=== PATIENT | female | born 1995 | race Two or more races ===

== ENCOUNTER 2018-12-16 20:09 | Inpatient (IN) | payer SELFPAY ==
[~2018-12-16] VITALS: Ht 157.5 cm; Wt 93.4 kg
[2018-12-16] MEDS ORDERED: 0.9 % SODIUM CHLORIDE 10 ML DISP.SYRIN. IV PRN (20:15)
[2018-12-16] MEDS ORDERED: NALBUPHINE 10 MG/ML AMPUL. IV PRN (20:15)
[2018-12-16] MEDS ORDERED: fentaNYL PF VIAL 100 MCG/2 ML VIAL IV PRN (20:15)
[2018-12-16] MEDS ORDERED: IBUPROFEN 400 MG TABLET. PO PRN (20:15)
[2018-12-16] MEDS ORDERED: BUTORPHANOL 2 MG/ML VIAL. IV PRN (20:15)
[2018-12-16] MEDS ORDERED: LIDOCAINE 1% PF 30 ML VIAL. INJ PRN (20:15)
[2018-12-16] MEDS ORDERED: ONDANSETRON PF 4 MG/2 ML VIAL. IV PRN (20:15)
[2018-12-16] MEDS ORDERED: OXYTOCIN 30 UNIT/500 ML PREMIX 500 ML IV PRN ×2 (20:15)
[2018-12-16] MEDS ORDERED: ACETAMINOPHEN 325 MG TABLET. PO PRN (20:15)
[2018-12-16] MEDS ORDERED: TERBUTALINE 1 MG/ML VIAL. SQ PRN (20:15)
[2018-12-16] MEDS ORDERED: DINOPROSTONE 10 MG SUPP.VAG VG ONE (20:30)
[2018-12-16 20:43] VITALS: BP 144/88
[2018-12-16] MEDS: IV RINGERS,LACTATED 1000ML 1,000 ML IV SCH (21:03)
[2018-12-16 21:09] LABS: BILIRUBIN,URINE NEGATIVE (NEG); CLARITY,URINE CLOUDY; COLOR,URINE YELLOW; NITRITE,URINE NEGATIVE (NEG); PROTEIN,URINE 100 mg/dL (NEG-TRACE); UROBILINOGEN,URINE 0.2 mg/dL (0.2 mg/dL)
[2018-12-16 21:16] LABS: BACTERIA,URINE MANY /HPF (0-FEW); RBC,URINE OCC /HPF (0-2); SQUAMOUS EPITHELIAL CELL,UR MANY /LPF; WBC,URINE 20-40 /HPF (0-4)
[2018-12-16 21:18] LABS: BASO % 0 % (0-3); EOS # 0.1 x10^3/uL (0.0-0.7); EOS % 1 % (0-3); HEMATOCRIT 30.6 % (36.0-47.0); LYMPH # 1.9 x10^3/uL (1.0-4.8); LYMPH % 19 % (24-48); MEAN CORPUSCULAR HEMOGLOBIN 24 pg (25-35); MEAN CORPUSCULAR HGB CONC 33 g/dL (31-37); MEAN CORPUSCULAR VOLUME 74 fL (79-100); MONO # 0.8 x10^3/uL (0.0-1.1); MONO % 8 % (0-9); NEUT # 7.2 x10^3/uL (1.8-7.7); NEUT % 72 % (31-73); PLATELET COUNT 253 x10^3/uL (140-400); RED BLOOD COUNT 4.16 x10^6/uL (3.50-5.40); RED CELL DISTRIBUTION WIDTH 16.1 % (11.5-14.5); WHITE BLOOD COUNT 10.1 x10^3/uL (4.0-11.0)
[2018-12-17] MEDS: IV RINGERS,LACTATED 1000ML 1,000 ML IV SCH ×3 (06:06→19:42)
[2018-12-17] MEDS ORDERED: L&D EPIDURAL 50 ML SYRINGE. ONE (10:00)
[2018-12-17] MEDS ORDERED: OXYTOCIN PREMIX 30 UNIT/500 ML NS BAG. IV ONE (10:00)
[2018-12-17] MEDS ORDERED: ROPIVacaine 0.2% PF 10 ML VIAL. ONE ×3 (10:00→18:41)
[2018-12-17] MEDS ORDERED: L&D EPIDURAL SYRINGE 50 ML ONE (12:18)
[2018-12-17] MEDS ORDERED: IV RINGERS,LACTATED 1000ML 1,000 ML IV ONE (12:41)
[2018-12-17] MEDS ORDERED: ePHEDrine PF IN SALINE 50 MG/10 ML SYRINGE. IV PRN (12:45)
[2018-12-17] MEDS ORDERED: NALOXONE 0.4 MG/ML VIAL. IV PRN (12:45)
[2018-12-17] MEDS ORDERED: ONDANSETRON PF 4 MG/2 ML VIAL. IV PRN (12:45)
[2018-12-17] MEDS: L&D EPIDURAL SYRINGE 50 ML EPID PRN ×2 (15:33→18:31)
--- NOTE | 2018-12-17 20:32 | PDOC1 ---
OB - History Hx of Present Care: Good Care Ultrasounds: Normal mid trimester US Obstetrical Complications: None Medical Complications: None Other Concerns: History of PIH Questionable history of cardiomyopathy Substance abuse Smoking Past Family/Social History * Past Medical, Surgical, Family and Obstetric Histories reviewed from chart. Blood Type: A+ Rubella: Immune RPR/VDRL: Negative GBS Status: Negative HBsAG: Negative OB - Chief Complaint & HPI Date of Admission: Date of Admission: Dec 16, 2018 at 20:09 Chief Complaint/History : 1 Para: 0 EDC: Jan 12, 2019 Reason for admission: induction of labor Admission Nurse Assessment Rev: Yes OB - Admission Exam Physical Exam Vitals: VS - Last 72 Hours, by Label Date Time Temp Pulse Resp B/P (MAP) Pulse Ox O2 Delivery O2 Flow Rate FiO2 12/17/18 18:31 20 12/17/18 15:33 20 12/16/18 20:43 98.4 88 20 144/88 (106) Room Air 98.4 HEENT: Normal, Nasal Mucosa Normal, Oropharynx Normal, Moist Membranes, Fontanelles Normal Heart: Regular Rate Lungs: Clear, Equal Abdomen: Gravid Extremities: Normal Pulses, No tenderness or swelling Reflexes: Normal Cervical Dilatation: Fingertip Effacement: 25% Station: Ballotable Membranes: Intact Amniotic Fluid: Clear Heart Rate: Normal Accelerations: Accelerations Present Contractions on Admission: >10 Minutes Apart Intensity: Mild Assessment/Plan Assessment/Plan TIUP induction ACSVD MELO MOLINA MD Dec 17, 2018 20:32
[2018-12-17] MEDS ORDERED: MMR per PROTOCOL. MC PRN (21:27)
[2018-12-17] MEDS ORDERED: 0.9 % SODIUM CHLORIDE 10 ML DISP.SYRIN. IV PRN ×2 (21:30→23:15)
[2018-12-17] MEDS ORDERED: HYDROCORTISONE 1% TOPICAL OINTMENT 30GM TUBE. TP PRN ×2 (21:30→23:15)
[2018-12-17] MEDS ORDERED: PHENYLEPH/MINERAL OIL/PETROLAT RECTAL OINTMENT TUBE. RC PRN ×2 (21:30→23:15)
[2018-12-17] MEDS ORDERED: diphenhydrAMINE HCL 25 MG CAPSULE PO PRN ×2 (21:30→23:15)
[2018-12-17] MEDS ORDERED: BENZOCAINE 20% TOPICAL AEROSOL SPRAY 57GM CAN. TP PRN ×3 (21:30→23:15)
[2018-12-17] MEDS ORDERED: ZOLPIDEM 5 MG TABLET. PO PRN ×2 (21:30→23:15)
[2018-12-17] MEDS ORDERED: MAGNESIUM HYDROXIDE 2,400 MG/30 ML ORAL.SUSP. PO PRN ×2 (21:30→23:15)
[2018-12-17] MEDS ORDERED: MAG HYDROX/ALUMINUM HYD/SIMETH 30 ML ORAL.SUSP PO PRN ×2 (21:30→23:15)
[2018-12-17] MEDS ORDERED: SIMETHICONE 80 MG TAB.CHEW PO PRN ×2 (21:30→23:15)
[2018-12-17] MEDS ORDERED: OXYTOCIN 30 UNIT/500 ML PREMIX 500 ML IV PRN ×2 (21:30→23:15)
[2018-12-17] MEDS ORDERED: IBUPROFEN 400 MG TABLET. PO PRN (23:15)
[2018-12-17] MEDS ORDERED: ACETAMINOPHEN 325 MG TABLET. PO PRN (23:15)
[2018-12-18] MEDS: IBUPROFEN 400 MG TABLET. PO PRN ×2 (00:19→15:05)
[2018-12-18] MEDS: ACETAMINOPHEN 325 MG TABLET. PO PRN ×2 (00:19→20:31)
[2018-12-18 00:53] VITALS: BP 112/66
[2018-12-18 05:25] VITALS: BP 95/53
[2018-12-18] MEDS: FERROUS SULFATE 325 MG TABLET. PO SCH ×2 (08:00→19:37)
[2018-12-18] MEDS ORDERED: FERROUS SULFATE 325 MG TABLET. PO SCH (08:00)
[2018-12-18 08:06] LABS: BASO % 0 % (0-3); EOS % 0 % (0-3); HEMATOCRIT 27.3 % (36.0-47.0); LYMPH # 2.4 x10^3/uL (1.0-4.8); LYMPH % 11 % (24-48); MEAN CORPUSCULAR HEMOGLOBIN 24 pg (25-35); MEAN CORPUSCULAR HGB CONC 33 g/dL (31-37); MEAN CORPUSCULAR VOLUME 73 fL (79-100); MONO % 9 % (0-9); NEUT # 17.6 x10^3/uL (1.8-7.7); NEUT % 80 % (31-73); PLATELET COUNT 212 x10^3/uL (140-400); RED BLOOD COUNT 3.74 x10^6/uL (3.50-5.40); RED CELL DISTRIBUTION WIDTH 16.8 % (11.5-14.5)
[2018-12-18 10:14] LABS: % BANDS 10 % (0-9); % EOS 1 % (0-5); % LYMPHS 6 % (24-48); % MONOS 6 % (0-10); % SEGS 77 % (35-66); PLT ESTIMATE ADEQUATE (ADEQUATE)
[2018-12-18 11:00] VITALS: BP 108/64
[2018-12-18] MEDS ORDERED: OXYTOCIN 10 UNIT/ML VIAL. ONE (15:27)
--- NOTE | 2018-12-18 16:02 | PDOC ---
Provider Note Provider Note doing well VSS uterus NTTP FU in AM MELO MOLINA MD Dec 18, 2018 16:02
--- NOTE | 2018-12-18 16:05 | PDOC ---
VAGINAL DELIVERY DATE DATE: 12/17/18 TIME: 16:03 : 1 EDC: Dec 14, 2018 VAGINAL DELIVERY: VTX VACCUM ASSISTED: No SEX: Male WEIGHT 8#14oz Nuchal Cord: No PAIN: Epidural EXTENSION: No EBL 300cc COMPLICATIONS none CONDITION Stable Signs of Intrauterine Infectio: None Shoulder Dystocia: No DIAGNOSIS MELO Miller MD Dec 18, 2018 16:05
[2018-12-18 18:15] VITALS: BP 110/71
[2018-12-18 20:10] VITALS: BP 121/72
[2018-12-18] MEDS: AMOXICILLIN/K CLAV 875/125MG TABLET. PO SCH (22:19)
[2018-12-19] MEDS: IBUPROFEN 400 MG TABLET. PO PRN ×2 (02:26→17:28)
[2018-12-19 02:30] VITALS: BP 122/78
[2018-12-19 04:32] LABS: BASO % 0 % (0-3); EOS # 0.1 x10^3/uL (0.0-0.7); EOS % 1 % (0-3); HEMATOCRIT 25.7 % (36.0-47.0); HEMOGLOBIN 8.1 g/dL (12.0-15.5); LYMPH # 2.7 x10^3/uL (1.0-4.8); LYMPH % 18 % (24-48); MEAN CORPUSCULAR HEMOGLOBIN 23 pg (25-35); MEAN CORPUSCULAR HGB CONC 32 g/dL (31-37); MEAN CORPUSCULAR VOLUME 74 fL (79-100); MONO % 7 % (0-9); NEUT # 11.7 x10^3/uL (1.8-7.7); NEUT % 75 % (31-73); PLATELET COUNT 220 x10^3/uL (140-400); RED BLOOD COUNT 3.47 x10^6/uL (3.50-5.40); RED CELL DISTRIBUTION WIDTH 16.7 % (11.5-14.5); WHITE BLOOD COUNT 15.6 x10^3/uL (4.0-11.0)
[2018-12-19] MEDS: AMOXICILLIN/K CLAV 875/125MG TABLET. PO SCH (09:29)
[2018-12-19] MEDS: FERROUS SULFATE 325 MG TABLET. PO SCH ×2 (09:29→17:23)
[2018-12-19 10:59] VITALS: BP 117/64
[2018-12-19 15:07] VITALS: BP 120/82
--- NOTE | 2018-12-19 17:20 | PDOC3 ---
OB DISCHARGE SUMMARY DATE OF ADMISSION: 12/17/18 DATE OF DISCHARGE: 12/19/18 REASON FOR ADMISSION: Induction of labor INTRAPARTUM PROCEDURES: Spontanous Vag Deliv DISCHARGE DIAGNOSIS: Term Delivered DISCHARGE INFORMATION: Activity (ad adrian), Diet (regular), Instructions (pelvic rest x 6 wks) HOSPITAL COURSE Term gestation delivered vaginally without complications. Abx for unknown fever. KEMI MARINELLI Jr, MD Dec 19, 2018 17:20
[2018-12-19] MEDS ORDERED: NAPR-514 PO (17:23)
[2018-12-19] MEDS ORDERED: AMOX1TAB11 PO (17:23)
--- NOTE | 2018-12-19 17:23 | DISCH ---
DISCHARGE INSTRUCTIONS Condition on Discharge Condition on Discharge: Stable Activity After Discharge Activity Instructions for Disc: Activity as tolerated Lifting Instructions after Dis: No heavy lifting Driving Instructions after Dis: Do not drive today Diet after Discharge Diet after Discharge: Regular Contacting the DRMarcello after DC Call your doctor for: Concerns you may have Follow-Up Follow up with: Dr. Henderson in 1 week. KEMI MARINELLI Jr, MD Dec 19, 2018 17:23
[2018-12-19 17:45] VITALS: BP 117/73
--- NOTE | 2018-12-19 18:15 | NUR ---
Discharge Note: Pt. denies needs or questions at this time. Pt. ambulatory, NB in car seat, escorted by Librado Anderson RN to vehicle with NB, significant other, and belongings present. Pt. discharged home. Nena Ellington RN
== END 2018-12-19 18:15 | disposition home or self-care (01) | DRG 807 ==
LOC: 3 SO LND 20:09 → 3 NORTH 12-17 23:35
PROVIDERS: ADMIT Specialist; ATTEND Specialist
PROC: 10E0XZZ Delivery of Products of Conception, External Approach (ICD-10-PCS; principal; 2018-12-18)
PROC: 3E0R3BZ Introduction of Anesthetic Agent into Spinal Canal, Percutaneous Approach (ICD-10-PCS; 2018-12-18)
PROC: 00HU33Z Insertion of Infusion Device into Spinal Canal, Percutaneous Approach (ICD-10-PCS; 2018-12-18)
PROC: 3E0P7VZ Introduction of Hormone into Female Reproductive, Via Natural or Artificial Opening (ICD-10-PCS; 2018-12-18)
PROC: 0W8NXZZ Division of Female Perineum, External Approach (ICD-10-PCS; 2018-12-18)
DX: O48.0 Post-term pregnancy (principal); Z37.0 Single live birth; Z3A.40 40 weeks gestation of pregnancy
CPT/HCPCS: 36415; 81001; 85007; 85025; 86592; 86850; 86900; 86901; 87086; J2405; J2590; J2795; J7120; G0378

== ENCOUNTER 2019-01-03 16:03 | Emergency (ER) | payer SELFPAY ==
[~2019-01-03] VITALS: Ht 160 cm; Wt 82.1 kg
[~2019-01-03 16:03] MED LIST: AMOX1TAB11 PO; NAPR-514 PO
[2019-01-03 16:57] VITALS: BP 118/58
--- NOTE | 2019-01-03 18:54 | RAD ---
Indication:Vaginal delivery on 12/17/2018. Passing clots. TECHNIQUE: Grayscale, color Doppler and spectral waveform images of the pelvis obtained. COMPARISON: None FINDINGS: Anteverted uterus measuring 13.0 x 7.5 x 10.5 cm. Small amount of fluid in the endometrial cavity. No endometrial vascularity. Right ovary measures 2.3 x 3.3 x 2.1 cm and shows evidence of blood flow. Left ovary measures 3.1 x 2.4 x 2.6 cm and shows evidence of blood flow. No free pelvic fluid. IMPRESSION: Trace amount of fluid or old blood in the endometrial cavity. No imaging evidence of retained products of conception. Electronically signed by: Jose Antonio Otero DO (01/03/2019 6:51 PM) [facility]
--- NOTE | 2019-01-03 19:18 | PHYS DOC ---
Past Medical History Past Medical History: No Pertinent History (FAUSTINA FIELD APRN) Past Surgical History: No Surgical History (FAUSTINA FIELD APRN) Alcohol Use: None Drug Use: None (FAUSTINA FIELD APRN) Adult General Chief Complaint Chief Complaint: VAGINAL PROBLEM HPI HPI Patient is a 23 year old female with no significant medical history who presents to the ED today complaining of bleeding she states she had a vaginal delivery on December 17 in this hospital. She states she's been bleeding on and off since then. She states last night she passed a clot and was concerned. She states she does not have any abdominal pain. She states her sister was diagnosed with uterine cancer at the age of 17 and she is concerned about it and would like to be checked for it. (FAUSTINA FIELD APRN) Review of Systems Review of Systems Constitutional: Denies fever or chills [] Eyes: Denies change in visual acuity, redness, or eye pain [] HENT: Denies nasal congestion or sore throat [] Respiratory: Denies cough or shortness of breath [] Cardiovascular: No additional information not addressed in HPI [] GI: Reports vaginal bleeding. Denies abdominal pain, nausea, vomiting, bloody stools or diarrhea [] : Denies dysuria or hematuria [] Musculoskeletal: Denies back pain or joint pain [] Integument: Denies rash or skin lesions [] Neurologic: Denies headache, focal weakness or sensory changes [] All other systems were reviewed and found to be within normal limits, except as documented in this note. (FAUSTINA FIELD APRN) Allergies Allergies Allergies Coded Allergies Type Severity Reaction Last Updated Verified No Known Drug Allergies 12/16/18 No (EDIL SUTHERLAND MD) Physical Exam Physical Exam Constitutional: Well developed, well nourished, no acute distress, non-toxic appearance. [] HENT: Normocephalic, atraumatic, bilateral external ears normal, oropharynx moist, no oral exudates, nose normal. [] Eyes: PERRLA, EOMI, conjunctiva normal, no discharge. [] Neck: Normal range of motion, no tenderness, supple, no stridor. [] Cardiovascular:Heart rate regular rhythm, no murmur [] Lungs & Thorax: Bilateral breath sounds clear to auscultation [] Abdomen: Bowel sounds normal, soft, no tenderness, no masses, no pulsatile masses. [] Pelvic exam External pelvic appears normal, there is trace amount of dry blood on the exterior aspect of the vagina, cervix is patient was, no syncope, no adnexal tenderness, trace amount of bright red blood in the vaginal vault, no clotting, no pulling. Skin: Warm, dry, no erythema, no rash. [] Back: No tenderness, no CVA tenderness. [] Extremities: No tenderness, no cyanosis, no clubbing, ROM intact, no edema. [] Neurologic: Alert and oriented X 3, normal motor function, normal sensory function, no focal deficits noted. [] Psychologic: Affect normal, judgement normal, mood normal. [] (FAUSTINA FIELD APRN) Current Patient Data Vital Signs Vital Signs Date Time Temp Pulse Resp B/P (MAP) Pulse Ox O2 Delivery O2 Flow Rate FiO2 01/03/19 16:57 98.3 107 17 118/58 (78) 96 Room Air 98.3 (EDIL SUTHERLAND MD) Lab Values Laboratory Tests Test 01/03/19 18:55 01/03/19 19:00 Urine Collection Type Unknown Urine Color Yara Urine Clarity Cloudy Urine pH 5.5 Urine Specific [place] >=1.030 Urine Protein 100 mg/dL (NEG-TRACE) Urine Glucose (UA) Negative mg/dL (NEG) Urine Ketones (Stick) 15 mg/dL (NEG) Urine Blood Large (NEG) Urine Nitrite Negative (NEG) Urine Bilirubin Small (NEG) Urine Urobilinogen Dipstick 1.0 mg/dL (0.2 mg/dL) Urine Leukocyte Esterase Large (NEG) Urine RBC 11-20 /HPF (0-2) Urine WBC 20-40 /HPF (0-4) Urine Squamous Epithelial Cells Few /LPF Urine Amorphous Sediment Present /HPF Urine Bacteria Mod /HPF (0-FEW) Urine Mucus Mod /LPF White Blood Count 8.0 x10^3/uL (4.0-11.0) Red Blood Count 5.47 x10^6/uL (3.50-5.40) H Hemoglobin 13.0 g/dL (12.0-15.5) Hematocrit 40.5 % (36.0-47.0) Mean Corpuscular Volume 74 fL (79-100) L Mean Corpuscular Hemoglobin 24 pg (25-35) L Mean Corpuscular Hemoglobin Concent 32 g/dL (31-37) Red Cell Distribution Width 18.2 % (11.5-14.5) H Platelet Count 335 x10^3/uL (140-400) Neutrophils (%) (Auto) 79 % (31-73) H Lymphocytes (%) (Auto) 15 % (24-48) L Monocytes (%) (Auto) 5 % (0-9) Eosinophils (%) (Auto) 1 % (0-3) Basophils (%) (Auto) 0 % (0-3) Neutrophils # (Auto) 6.3 x10^3/uL (1.8-7.7) Lymphocytes # (Auto) 1.2 x10^3/uL (1.0-4.8) Monocytes # (Auto) 0.4 x10^3/uL (0.0-1.1) Eosinophils # (Auto) 0.1 x10^3/uL (0.0-0.7) Basophils # (Auto) 0.0 x10^3/uL (0.0-0.2) Laboratory Tests 01/03/19 19:00 (EDIL SUTHERLAND MD) EKG EKG [] (FAUSTINA FIELD APRN) Radiology/Procedures Radiology/Procedures [] (FAUSTINA FIELD APRN) Course & Med Decision Making Course & Med Decision Making Pertinent Labs and Imaging studies reviewed. (See chart for details) This is a 23-year-old female patient who presents to the ED today complaining of vaginal bleeding. Patient had a normal delivery vaginally on December 17, 2018. She has been clinic on and off since yesterday delivery though she states yesterday she passed a clot. She is concerned she could have uterine cancer because her sister had similar symptoms with uterine cancer. Pelvic ultrasound was done which was negative for any acute findings. I had ordered a CBC to check patient's H&H, CBC has not been done patient requested to be discharged. We'll send home follow-up with her own DIRECTOR STARS. Provided return precautions. (FAUSTINA FIELD APRN) Course & Med Decision Making Staff Physician Addendum: I was working in the ER during the course of this patient's visit. I was available for consultation as needed, but I was not directly involved in the care of this patient. (EDIL SUTHERLAND MD) Dragon Disclaimer Dragon Disclaimer This electronic medical record was generated, in whole or in part, using a voice recognition dictation system. (FAUSTINA FIELD APRN) Departure Departure Impression: Primary Impression: Vaginal bleeding Disposition: HOME, SELF-CARE Condition: STABLE Referrals: MELO MOLINA MD (PCP) Follow-up in the course of this week or next week Patient Instructions: Uterine Bleeding, Dysfunctional, [id number] Additional Instructions: You were evaluated in the emergency room for vaginal bleeding after vaginal delivery. Please follow-up with your primary care doctor or your DIRECTOR STARS in the course of next week. Come back to the ED at any point symptoms worsen. FAUSTINA FIELD APRN Jan 03, 2019 19:18 EDIL SUTHERLAND MD Jan 04, 2019 01:22
[2019-01-03 19:19] LABS: BASO % 0 % (0-3); EOS # 0.1 x10^3/uL (0.0-0.7); EOS % 1 % (0-3); HEMATOCRIT 40.5 % (36.0-47.0); LYMPH # 1.2 x10^3/uL (1.0-4.8); LYMPH % 15 % (24-48); MEAN CORPUSCULAR HEMOGLOBIN 24 pg (25-35); MEAN CORPUSCULAR HGB CONC 32 g/dL (31-37); MEAN CORPUSCULAR VOLUME 74 fL (79-100); MONO # 0.4 x10^3/uL (0.0-1.1); MONO % 5 % (0-9); NEUT # 6.3 x10^3/uL (1.8-7.7); NEUT % 79 % (31-73); PLATELET COUNT 335 x10^3/uL (140-400); RED BLOOD COUNT 5.47 x10^6/uL (3.50-5.40); RED CELL DISTRIBUTION WIDTH 18.2 % (11.5-14.5)
[2019-01-03 19:22] LABS: BILIRUBIN,URINE SMALL (NEG); CLARITY,URINE CLOUDY; COLOR,URINE AMBER; NITRITE,URINE NEGATIVE (NEG); PH,URINE 5.5; PROTEIN,URINE 100 mg/dL (NEG-TRACE)
[2019-01-03 19:31] LABS: SQUAMOUS EPITHELIAL CELL,UR FEW /LPF; WBC,URINE 20-40 /HPF (0-4)
[2019-01-03 19:32] LABS: AMORPHOUS SEDIMENT,UR PRESENT /HPF; BACTERIA,URINE MOD /HPF (0-FEW)
== END 2019-01-03 19:40 | disposition home or self-care (01) ==
LOC: ER 16:03
DX: O72.1 Other immediate postpartum hemorrhage (principal)
CPT/HCPCS: 36415; 76856; 81001; 85025; 99285-25